=== PATIENT | male | born 1970 | race Caucasian/White ===

== ENCOUNTER 2017-04-16 19:00 | Emergency (ER) | payer SELFPAY ==
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
== END 2017-04-16 19:57 | disposition home or self-care (01) ==
LOC: ER 19:00
DX: R21 Rash and other nonspecific skin eruption (principal); R23.8 Other skin changes
CPT/HCPCS: Z7502